=== PATIENT | male | born 1940 | race Caucasian/White ===

== ENCOUNTER 2017-01-18 09:33 | Observation (INO) | payer MEDICARE, OTHER ==
[~2017-01-18] VITALS: Ht 180.3 cm; Wt 80.0 kg
[~2017-01-18 09:33] MED LIST: ASPI81TA82 PO; B-COCAP9 PO; BYST10TA2 PO; DIOV320T PO; PLAV75TA PO; PREG100 PO; TEST200I13 IM; VYTO10TA32 PO
[2017-01-18 09:35] VITALS: BP 190/91; PULSE 61; RESP 13; TEMP 98.1; O2SAT 95
[2017-01-18] MEDS ORDERED: ASPI-110 PO (09:57)
[2017-01-18] MEDS ORDERED: VALS1TAB65 PO (09:57)
[2017-01-18] MEDS ORDERED: LYRI100C PO (09:57)
[2017-01-18] MEDS ORDERED: VYTO10TA8 PO (09:57)
[2017-01-18] MEDS ORDERED: SODIUM CHLOR 0.9% 1000 ML INJ 1,000 ML IV SCH (10:03)
--- NOTE | 2017-01-18 10:11 | PD ---
HPI Chief Complaint: GI Complaint Time Seen by Provider: 10:03 Travel History International Travel<30 days: No Contact w/Intl Traveler<30days: No Traveled to known affect area: No History of Present Illness HPI PT HAD A COLONOSCOPY ON THURSDAY, FOR 2 LARGE POLYP REMOVAL, NOW TODAY 6 DAYS LATER, HE HAD 3 LARGE BLOODY STOOLS, NO APPARENT TIMING RELATIONSHIP, NO ABD PAIN, NO RECTAL PAIN. NO ALLEVIATING OR AGGRAVATING FACTORS. GI DR PAYNE PCP DR BETO LORENZO PMHX: hypertension, diverticulosis, neuropathy, hyperlipidemia and TIA PFSH Past Medical History Cardiovascular Problems: Yes Cerebrovascular Accident: Yes (TIA 2014) Hypertension: Yes Neurologic: Yes (NEUROPATHY) Past Surgical History Abdominal Surgery: Yes (AAA REPAIR, DIVERTICULITIS ) Cardiac Surgery: Yes (CAROTID ENDARTERECTOMY) Social History Alcohol Use: Yes (SOCIALLY) Tobacco Use: No Substance Use: No Allergies-Medications (Allergen,Severity, Reaction): Coded Allergies: amlodipine (Unverified Allergy, Severe, Swelling, 01/18/17) Reported Meds & Prescriptions Reported Meds & Active Scripts Active Reported Vytorin (Ezetimibe-Simvastatin) 10-20 Mg Tab 1 Tab PO HS Valsartan 160 Mg Tab 160 Mg PO BID Lyrica (Pregabalin) 100 Mg Cap 100 Mg PO BID Review of Systems Except as stated in HPI: all other systems reviewed are Neg Gastrointestinal: Positive: Hematochezia Physical Exam Narrative GENERAL: SKIN: Warm and dry. HEAD: Atraumatic. Normocephalic. EYES: Pupils equal and round. No scleral icterus. No injection or drainage. ENT: No nasal bleeding or discharge. Mucous membranes pink and moist. NECK: Trachea midline. No JVD. CARDIOVASCULAR: Regular rate and rhythm. RESPIRATORY: No accessory muscle use. Clear to auscultation. Breath sounds equal bilaterally. GASTROINTESTINAL: Abdomen soft, non-tender, nondistended. GROSS BLOOD PER RECTUM MUSCULOSKELETAL: Extremities without clubbing, cyanosis, or edema. No obvious deformities. NEUROLOGICAL: Awake and alert. No obvious cranial nerve deficits. Motor grossly within normal limits. Five out of 5 muscle strength in the arms and legs. Normal speech. PSYCHIATRIC: Appropriate mood and affect; insight and judgment normal. Data Data Last Documented VS Orders Orders Complete Blood Count With Diff (01/18/17 10:03) Comprehensive Metabolic Panel (01/18/17 10:03) Lipase (01/18/17 10:03) Prothrombin Time / Inr (Pt) (01/18/17 10:03) Act Partial Throm Time (Ptt) (01/18/17 10:03) Type And Screen (01/18/17 10:03) Ecg Monitoring (01/18/17 10:03) Iv Access Insert/Monitor (01/18/17 10:03) Oximetry (01/18/17 10:03) Pantoprazole Inj (Protonix Inj) (01/18/17 10:15) Sodium Chlor 0.9% 1000 Ml Inj (Ns 1000 M (01/18/17 10:03) Sodium Chloride 0.9% Flush (Ns Flush) (01/18/17 10:15) Admit Order (Ed Use Only) (01/18/17 11:30) Labs Laboratory Tests Test 01/18/17 10:00 White Blood Count 5.9 TH/MM3 Red Blood Count 5.31 MIL/MM3 Hemoglobin 15.8 GM/DL Hematocrit 47.4 % Mean Corpuscular Volume 89.3 FL Mean Corpuscular Hemoglobin 29.8 PG Mean Corpuscular Hemoglobin Concent 33.3 % Red Cell Distribution Width 13.9 % Platelet Count 190 TH/MM3 Mean Platelet Volume 7.9 FL Neutrophils (%) (Auto) 70.6 % Lymphocytes (%) (Auto) 20.4 % Monocytes (%) (Auto) 7.2 % Eosinophils (%) (Auto) 1.2 % Basophils (%) (Auto) 0.6 % Neutrophils # (Auto) 4.1 TH/MM3 Lymphocytes # (Auto) 1.2 TH/MM3 Monocytes # (Auto) 0.4 TH/MM3 Eosinophils # (Auto) 0.1 TH/MM3 Basophils # (Auto) 0.0 TH/MM3 CBC Comment DIFF FINAL Differential Comment Prothrombin Time 11.0 SEC Prothromb Time International Ratio 1.0 RATIO Activated Partial Thromboplast Time 30.3 SEC Blood Urea Nitrogen 34 MG/DL Creatinine 1.48 MG/DL Random Glucose 90 MG/DL Total Protein 7.1 GM/DL Albumin 3.5 GM/DL Calcium Level 9.2 MG/DL Alkaline Phosphatase 108 U/L Aspartate Amino Transf (AST/SGOT) 21 U/L Alanine Aminotransferase (ALT/SGPT) 23 U/L Total Bilirubin 0.6 MG/DL Sodium Level 139 MEQ/L Potassium Level 4.3 MEQ/L Chloride Level 106 MEQ/L Carbon Dioxide Level 27.0 MEQ/L Anion Gap 6 MEQ/L Estimat Glomerular Filtration Rate 46 ML/MIN Lipase 121 U/L MDM Medical Decision Making Medical Screen Exam Complete: Yes Emergency Medical Condition: Yes Medical Record Reviewed: Yes Differential Diagnosis GI BLEED V ANEMIA V DEHYDRATION V INFECTIOUS DIARRHEA Narrative Course ON EVALUATION CBC DID NOT REVEAL ANY LEUKOCYTOSIS NOR ANY ANEMIA. ELECTROLYTES WERE WNL WITH THE EXCEPTION OF CREATININE AND GFR. PATIENT WAS ADMITTED FOR FURTHER EVALUATION. Diagnosis Primary Impression: GI bleed Qualified Codes: K92.2 - Gastrointestinal hemorrhage, unspecified Giovani Soria MD Jan 18, 2017 10:11
[2017-01-18] MEDS ORDERED: SODIUM CHLORIDE 0.9% FLUSH 10 ML FLUSH IVF PRN (10:15)
[2017-01-18] MEDS ORDERED: PANTOPRAZOLE SODIUM 40 MG VIAL IVP ONE (10:15)
[2017-01-18 10:26] LABS: AUTOMATED NEUTROPHIL # 4.1 TH/MM3 (1.8-7.7); BASOPHIL % 0.6 % (0.0-2.0); EOSINOPHIL # 0.1 TH/MM3 (0-0.4); EOSINOPHIL % 1.2 % (0.0-4.0); HEMATOCRIT 47.4 % (39.0-51.0); HEMO FLAGS DIFF FINAL; LYMPH % 20.4 % (9.0-44.0); LYMPHOCYTE # 1.2 TH/MM3 (1.0-4.8); MEAN CELL VOLUME 89.3 FL (80.0-100.0); MEAN CORPUSCULAR HEMOGLOBIN 29.8 PG (27.0-34.0); MEAN CORPUSCULAR HGB CONC 33.3 % (32.0-36.0); MONO % 7.2 % (0.0-8.0); NEUT % 70.6 % (16.0-70.0); PLATELET COUNT 190 TH/MM3 (150-450); RED BLOOD COUNT 5.31 MIL/MM3 (4.50-5.90); RED CELL DISTRIBUTION WIDTH 13.9 % (11.6-17.2); WHITE BLOOD COUNT 5.9 TH/MM3 (4.0-11.0)
[2017-01-18 10:29] LABS: APTT (PATIENT) 30.3 SEC (24.3-30.1)
[2017-01-18 10:33] VITALS: O2SAT 97
[2017-01-18 11:01] LABS: ALT (GPT) 23 U/L (12-78); ANION GAP 6 MEQ/L (5-15); AST (GOT) 21 U/L (15-37); BLOOD UREA NITROGEN 34 MG/DL (7-18); CHLORIDE 106 MEQ/L (98-107); GLOMERULAR FILTRATION RATE 46 ML/MIN (>89); POTASSIUM 4.3 MEQ/L (3.5-5.1); SODIUM (NA) 139 MEQ/L (136-145)
[2017-01-18 11:03] LABS: ALKALINE PHOSPHATASE 108 U/L (45-117); TOTAL BILIRUBIN ADULT 0.6 MG/DL (0.2-1.0)
[2017-01-18] MEDS ORDERED: oxyCODONE/ACETAMINOPHEN 10 MG/325 MG TAB PO PRN (11:45)
[2017-01-18] MEDS ORDERED: ONDANSETRON HCL 4 MG/2 ML VIAL IVP PRN (11:45)
[2017-01-18] MEDS ORDERED: oxyCODONE/ACETAMINOPHEN 5 MG/325 MG TAB PO PRN (11:45)
[2017-01-18] MEDS ORDERED: SODIUM CHLORIDE 0.9% FLUSH 10 ML FLUSH IV FLUSH PRN (11:45)
[2017-01-18] MEDS ORDERED: MORPHINE SULFATE 4 MG/ML INJ IV PUSH PRN ×2 (11:45)
[2017-01-18] MEDS ORDERED: BISACODYL 10 MG SUPP RECTAL PRN (11:45)
[2017-01-18] MEDS ORDERED: PROCHLORPERAZINE 25 MG SUPP RECTAL PRN (11:45)
[2017-01-18] MEDS ORDERED: NALOXONE HCL 0.4 MG/ML AMP IV PUSH PRN (11:45)
[2017-01-18] MEDS ORDERED: SENNOSIDES 8.6 MG TAB PO PRN (11:45)
[2017-01-18] MEDS ORDERED: MAGNESIUM HYDROXIDE SUSP 30 ML CUP PO PRN (11:45)
[2017-01-18] MEDS ORDERED: LACTULOSE SYRUP 20 GM/30 ML CUP PO PRN (11:45)
[2017-01-18] MEDS ORDERED: ACETAMINOPHEN 325 MG TAB PO PRN ×2 (11:45)
[2017-01-18] MEDS ORDERED: LACTATED RINGER'S 1000 ML INJ 1,000 ML IV ONE (12:00)
[2017-01-18] MEDS ORDERED: PROPOFOL 200 MG/20 ML AMP IV ONE (12:00)
[2017-01-18] MEDS ORDERED: PHENYLEPH/NS 1000 MCG/10 ML SYR IV ONE (12:00)
[2017-01-18] MEDS ORDERED: LIDOCAINE HCL 1% PF 5 ML AMPULE OTHER ONE (12:00)
--- NOTE | 2017-01-18 12:38 | MB ---
cc: MICHAEL LONG MD, STEVEN DATE OF CONSULTATION: 01/18/2017. REASON FOR CONSULTATION: Lower GI bleed. REFERRING PHYSICIAN: Dr. Toney Rubalcava. HISTORY OF PRESENT ILLNESS: This is a very pleasant 76-year-old male known to the undersigned who underwent routine colonoscopy six days ago for a personal history of colon polyps along with constipation and bloating. The patient was found to have two polyps in the ascending colon, at least one of which was a little over a centimeter and removed by snare cautery polypectomy. The patient is on baby aspirin daily but no other blood thinners. He states he was doing well all week until this morning when he woke up and he had three bowel movements in succession with a fair amount of bright red blood. He had no abdominal pain, no nausea and no lightheadedness or dizziness. He called the undersigned. I directed him and his to come to the emergency room. He has had two more bloody bowel movement since then. I did see the blood in the toilet and there is a fair amount of fresh red blood. The patient's hemoglobin; however, is good at 15.8. He has no pain or other symptoms. No chest pain or shortness of breath. PAST MEDICAL HISTORY: His medical history is remarkable for hypertension. PAST SURGICAL HISTORY: 1. He has had artificial joint surgery. 2. Vascular surgery. MEDICATIONS: His medications include: 1. Aspirin 81 milligrams daily. 2. Lyrica 100 milligrams daily. 3. B-complex one tablet daily. 4. Valsartan 320 milligrams daily. ALLERGIES: HE HAS NO KNOWN DRUG ALLERGIES. FAMILY HISTORY: His family history is remarkable for heart disease. SOCIAL HISTORY: The patient is . He has three children. He is a former smoker. No significant alcohol history. REVIEW OF SYSTEMS: His review of systems is essentially negative at the present time except for the bleeding. He does state that he tends to bleed easily. He does have a history of joint pain. PHYSICAL EXAMINATION: GENERAL: The physical exam reveals a well-developed male in no acute distress. VITAL SIGNS: His blood pressure is 190/91, pulse 61 and regular, respirations are 13 and unlabored. Temperature is 98.1 orally. HEAD, EYES, EARS, NOSE, THROAT: The sclerae are anicteric. LUNGS: Clear to auscultation. HEART: Heart sounds are regular without murmurs, rubs or gallops. ABDOMEN: Abdomen is soft and nontender, nondistended. No organomegaly. Bowel sounds are normal. RECTAL: Rectal was deferred. EXTREMITIES: No cyanosis, clubbing or edema. NEUROLOGIC: He is alert and oriented with pleasant affect and no gross motor deficits. LABORATORY FINDINGS: Electrolytes unremarkable. BUN 34, creatinine 1.48. Liver function tests are unremarkable. His INR is 1.0, APTT is 30.3. His hemoglobin is 15.8, white count 5.9, platelet count 190,000. IMAGING STUDIES: No current imaging available. IMPRESSION: Lower GI bleed with hematochezia. The patient is most likely having a post-polypectomy bleed. He is hemodynamically stable. PLAN: I discussed with Zackary and his that he may stop bleeding on his own, but because he has continued to pass a fair amount of blood here in the emergency department, I have suggested that we go ahead and start prepping him with GoLYTELY, and if the bleeding continues, will go ahead with colonoscopy later today for hemostasis. I discussed hemostatic mechanisms such as cautery, injection and hemoclips. He understands the risks of colonoscopy. Informed consent was obtained. He has been started on IV fluids. Also, serial hemoglobin and hematocrit have been ordered. Will follow closely with you. Thank you for this consultation. MD EDDY Geller/JACKELIN /12:05 PM /12:24 PM NYASIA
[2017-01-18 12:54] VITALS: BP 154/80; PULSE 71; RESP 12; TEMP 98.7; O2SAT 96
[2017-01-18] MEDS ORDERED: PEG (High)/E-LYTE SOLN 4000 ML BTL PO ONE (13:00)
--- NOTE | 2017-01-18 13:21 | HHI.HP ---
[facility] Service [facility] Primary Care Physician Elise Gaspar M.D. Admission Diagnosis GI BLEED (HD STABLE) Diagnoses: Chief Complaint: rectal bleeding Travel History International Travel<30 Days: No Contact w/Intl Traveler <30 Da: No Traveled to Known Affected Are: No History of Present Illness 76-year-old male with a history of hypertension, diverticulosis, neuropathy, hyperlipidemia and the TIA presented to the ED with rectal bleeding that started this morning. Patient states he underwent a colonoscopy on Thursday and had 2 large polyps removed. Today he developed rectal bleeding with bright red blood with each bowel movement. He states his bowel movements are liquid, and he has had about 6 since admission. He denies any associated chest pain, shortness of breath, abdominal pain, dizziness, headaches, nausea or vomiting. PCP Dr. ELISE GASPAR GI Dr. Jaquez Review of Systems Constitutional: DENIES: Diaphoretic episodes, Fatigue, Fever, Weight gain, Weight loss, Chills, Dizziness, Change in appetite Endocrine: DENIES: Heat/cold intolerance, Polydipsia, Polyphagia Eyes: DENIES: Blurred vision, Diplopia, Eye inflammation, Eye pain, Vision loss Ears, nose, mouth, throat: DENIES: Tinnitus, Hearing loss, Vertigo, Nasal discharge, Oral lesions, Odynophagia Respiratory: DENIES: Apneas, Cough, Snoring, Wheezing, Hemoptysis, Sputum production Cardiovascular: DENIES: Chest pain, Palpitations, Syncope, Dyspnea on Exertion , PND, Lower Extremity Edema Gastrointestinal: COMPLAINS OF: Bloody stools, DENIES: Abdominal pain, Black stools, Constipation, Diarrhea, Nausea, Vomiting, Difficulty Swallowing Genitourinary: DENIES: Sexual dysfunction, Urinary frequency Musculoskeletal: DENIES: Joint pain, Muscle aches, Stiffness Integumentary: DENIES: Abnormal pigmentation, Nail changes Hematologic/lymphatic: DENIES: Bruising, Lymphadenopathy Immunologic/allergic: DENIES: Eczema, Urticaria Neurologic: DENIES: Abnormal gait, Headache, Localized weakness, Paresthesias Psychiatric: DENIES: Anxiety, Confusion, Mood changes, Depression, Hallucinations Except as stated in HPI: all other systems reviewed are Neg Past Family Social History Past Medical History hypertension diverticulosis neuropathy hyperlipidemia TIA Past Surgical History Endarterectomy AAA repair Colon resection s/o Diverticulitis Left knee replacement Reported Medications Reported Meds & Active Scripts Active Reported Vytorin (Ezetimibe-Simvastatin) 10-20 Mg Tab 1 Tab PO HS Valsartan 160 Mg Tab 160 Mg PO BID Aspirin 81 (Aspirin) 81 Mg Tabdr 81 Mg PO DAILY Lyrica (Pregabalin) 100 Mg Cap 100 Mg PO BID Allergies: Coded Allergies: amlodipine (Unverified Allergy, Severe, Swelling, 01/18/17) Active Ordered Medications Current Medications Pantoprazole Sodium (Protonix Inj) 40 mg ONCE ONCE IVP Last administered on 10:33; Start 01/18/17 at 10:15; Stop 01/18/17 at 10:16; Status DC Sodium Chloride 1,000 ml @ 125 mls/hr Q8H IV Last administered on 01/18/17 10 :33; Start 01/18/17 at 10:03; Stop 01/18/17 at 12:07; Status DC Sodium Chloride (NS Flush) 2 ml UNSCH PRN IVF FLUSH AFTER USING IV ACCESS Last administered on 01/18/17 10:33; Start 01/18/17 at 10:15 Sodium Chloride 1,000 ml @ 100 mls/hr Q10H IV ; Start 01/18/17 at 12:30 Sodium Chloride (NS Flush) 2 ml UNSCH PRN IV FLUSH FLUSH AFTER USING IV ACCESS ; Start 01/18/17 at 11:45; Status UNV Sodium Chloride (NS Flush) 2 ml BID IV FLUSH ; Start 01/18/17 at 21:00 Acetaminophen (Tylenol) 650 mg Q4H PRN PO TEMP > 100.4; Start 01/18/17 at 11:45 Ondansetron HCl (Zofran Inj) 4 mg Q6H PRN IVP NAUSEA OR VOMITING; Start at 11:45 Prochlorperazine (Compazine Supp) 25 mg Q12H PRN RECTAL NAUSEA OR VOMITING; Start 01/18/17 at 11:45 Acetaminophen (Tylenol) 650 mg Q6H PRN PO PAIN SCALE 1 TO 2; Start 01/18/17 at 11:45 Oxycodone/ Acetaminophen (Percocet 5-325 Mg) 1 tab Q6H PRN PO PAIN SCALE 3 TO 5; Start 01/18/17 at 11:45 Oxycodone/ Acetaminophen (Percocet 10-325 Mg) 1 tab Q6H PRN PO PAIN SCALE 6 TO 10; Start 01/18/17 at 11:45 Morphine Sulfate (Morphine Inj) 2 mg Q3H PRN IV PUSH Pain 3-5; if unable to take PO; Start 01/18/17 at 11:45 Morphine Sulfate (Morphine Inj) 4 mg Q3H PRN IV PUSH Pain 6-10;if unable to take PO; Start 01/18/17 at 11:45 Naloxone HCl (Narcan Inj) 0.4 mg UNSCH PRN IV PUSH SEE LABEL COMMENTS; Start 01/18/17 at 11:45 Senna/Docusate Sodium (Julia-Colace) 1 tab BID PO ; Start 01/18/17 at 21:00 Magnesium Hydroxide (Milk Of Magnesia Liq) 30 ml Q12H PRN PO MILD - MODERATE CONSTIPATION; Start 01/18/17 at 11:45 Sennosides (Senokot) 17.2 mg Q12H PRN PO MODERATE - SEVERE CONSTIPATION; Start 01/18/17 at 11:45 Bisacodyl (Dulcolax Supp) 10 mg DAILY PRN RECTAL SEVERE CONSITIPATION; Start 01/18/17 at 11:45 Lactulose (Lactulose Liq) 30 ml DAILY PRN PO SEVERE CONSITIPATION; Start at 11:45 Pantoprazole Sodium (Protonix Inj) 40 mg Q12H IV PUSH ; Start 01/18/17 at 23:00 Pregabalin (Lyrica) 100 mg BID PO ; Start 01/18/17 at 21:00 Valsartan (Diovan) 160 mg BID PO ; Start 01/18/17 at 21:00 Non-Formulary Medication 1 tab HS PO ; Start 01/18/17 at 21:00; Status UNV Polyethylene Glycol/ Electrolytes (Colyte Liq) 4,000 ml ONCE ONCE PO ; Start 01/18/17 at 13:00; Stop 01/18/17 at 13:01; Status DC EZETIMIBE (Zetia) 10 mg HS PO ; Start 01/19/17 at 21:00 Pravastatin Sodium (Pravachol) 40 mg HS PO ; Start 01/19/17 at 21:00 Current Medications Medications (Trade) Dose Ordered Sig/Lupe Route Start Time Stop Time Status Last Admin (NS Flush) 2 ml UNSCH PRN IVF 01/18/17 10:15 01/18/17 10:33 Sodium Chloride 1,000 ml @ 100 mls/hr Q10H IV 01/18/17 12:30 (NS Flush) 2 ml BID IV FLUSH 01/18/17 21:00 (Tylenol) 650 mg Q4H PRN PO 01/18/17 11:45 (Zofran Inj) 4 mg Q6H PRN IVP 01/18/17 11:45 (Compazine Supp) 25 mg Q12H PRN RECTAL 01/18/17 11:45 (Tylenol) 650 mg Q6H PRN PO 01/18/17 11:45 (Percocet 5-325 Mg) 1 tab Q6H PRN PO 01/18/17 11:45 (Percocet 10-325 Mg) 1 tab Q6H PRN PO 01/18/17 11:45 (Morphine Inj) 2 mg Q3H PRN IV PUSH 01/18/17 11:45 (Morphine Inj) 4 mg Q3H PRN IV PUSH 01/18/17 11:45 (Narcan Inj) 0.4 mg UNSCH PRN IV PUSH 01/18/17 11:45 (Julia-Colace) 1 tab BID PO 01/18/17 21:00 (Milk Of Magnesia Liq) 30 ml Q12H PRN PO 01/18/17 11:45 (Senokot) 17.2 mg Q12H PRN PO 01/18/17 11:45 (Dulcolax Supp) 10 mg DAILY PRN RECTAL 01/18/17 11:45 (Lactulose Liq) 30 ml DAILY PRN PO 01/18/17 11:45 (Protonix Inj) 40 mg Q12H IV PUSH 01/18/17 23:00 (Lyrica) 100 mg BID PO 01/18/17 21:00 (Diovan) 160 mg BID PO 01/18/17 21:00 (Zetia) 10 mg HS PO 01/19/17 21:00 (Pravachol) 40 mg HS PO 01/19/17 21:00 Family History Dad: Heart disease, [place] Social History Tobacco use: Quit 15 years ago Alcohol use: One beer daily Illicit drug use: Denies Physical Exam Vital Signs Vital Signs Date Time Temp Pulse Resp B/P (MAP) Pulse Ox O2 Delivery O2 Flow Rate FiO2 01/18/17 12:54 98.7 71 12 154/80 (104) 96 01/18/17 10:33 97 Room Air 01/18/17 09:35 98.1 61 13 190/91 (124) 95 Physical Exam GENERAL: This is a well-nourished, well-developed patient, in no apparent distress. SKIN: No rashes, ecchymoses or lesions. Cool and dry. HEAD: Atraumatic. Normocephalic. EYES: Pupils equal round and reactive. Extraocular motions intact. tongue is midline, mucous membrane is moist ENT: Nose without bleeding, purulent drainage or septal hematoma. Airway patent. NECK: Trachea midline. No JVD neck supple CARDIOVASCULAR: Regular rate and rhythm without murmurs, gallops, or rubs. S1, S2 NO S3 OR S4 RESPIRATORY: Clear to auscultation. Breath sounds equal bilaterally. No wheezes , rales, or rhonchi. GASTROINTESTINAL: Abdomen soft, non-tender, nondistended. MUSCULOSKELETAL: Extremities without clubbing, cyanosis, or edema. No calf tenderness. NEUROLOGICAL: Awake and alert. Motor and sensory grossly within normal limits. Normal speech. INSIGHT AND JUDGEMENT ARE GOOD MOOD AND BEHAVIOR ARE APPROPRIATE HEME POSITIVE STOOLS Laboratory Laboratory Tests Test 01/18/17 10:00 White Blood Count 5.9 Red Blood Count 5.31 Hemoglobin 15.8 Hematocrit 47.4 Mean Corpuscular Volume 89.3 Mean Corpuscular Hemoglobin 29.8 Mean Corpuscular Hemoglobin Concent 33.3 Red Cell Distribution Width 13.9 Platelet Count 190 Mean Platelet Volume 7.9 Neutrophils (%) (Auto) 70.6 Lymphocytes (%) (Auto) 20.4 Monocytes (%) (Auto) 7.2 Eosinophils (%) (Auto) 1.2 Basophils (%) (Auto) 0.6 Neutrophils # (Auto) 4.1 Lymphocytes # (Auto) 1.2 Monocytes # (Auto) 0.4 Eosinophils # (Auto) 0.1 Basophils # (Auto) 0.0 CBC Comment DIFF FINAL Differential Comment Prothrombin Time 11.0 Prothromb Time International Ratio 1.0 Activated Partial Thromboplast Time 30.3 Blood Urea Nitrogen 34 Creatinine 1.48 Random Glucose 90 Total Protein 7.1 Albumin 3.5 Calcium Level 9.2 Alkaline Phosphatase 108 Aspartate Amino Transf (AST/SGOT) 21 Alanine Aminotransferase (ALT/SGPT) 23 Total Bilirubin 0.6 Sodium Level 139 Potassium Level 4.3 Chloride Level 106 Carbon Dioxide Level 27.0 Anion Gap 6 Estimat Glomerular Filtration Rate 46 Lipase 121 Result Diagram: 01/18/17 1000 01/18/17 1000 Caprini VTE Risk Assessment Caprini VTE Risk Assessment: Mod/High Risk (score >= 2) VTE Pharm Contraindication: Active bleeding Caprini Risk Assessment Model Point Value = 1 Point Value = 2 Point Value = 3 Point Value = 5 Age 41-60 Minor surgery BMI > 25 kg/m2 Swollen legs Varicose veins or History of unexplained or recurrent spontaneous Oral contraceptives or hormone replacement Sepsis (< 1 month) Serious lung disease, including pneumonia (< 1 month) Abnormal pulmonary function Acute myocardial infarction Congestive heart failure (< 1 month) History of inflammatory bowel disease Medical patient at bed rest Age 61-74 Arthroscopic surgery Major open surgery (> 45 min) Laparoscopic surgery (> 45 min) Malignancy Confined to bed (> 72 hours) Immobilizing plaster cast Central venous access Age >= 75 History of VTE Family history of VTE Factor V Leiden Prothrombin [id number] Lupus anticoagulant Anticardiolipin antibodies Elevated serum homocysteine Heparin-induced thrombocytopenia Other congenital or acquired thrombophilia Stroke (< 1 month) Elective arthroplasty Hip, pelvis, or leg fracture Acute spinal cord injury (< 1 month) Prophylaxis Regimen Total Risk Factor Score Risk Level Prophylaxis Regimen 0-1 Low Early ambulation 2 Moderate Order ONE of the following: *Sequential Compression Device (SCD) *Heparin 5000 units SQ BID 3-4 Higher Order ONE of the following medications: *Heparin 5000 units SQ TID *Enoxaparin/Lovenox 40 mg SQ daily (WT < 150 kg, CrCl > 30 mL/min) *Enoxaparin/Lovenox 30 mg SQ daily (WT < 150 kg, CrCl > 10-29 mL/min) *Enoxaparin/Lovenox 30 mg SQ BID (WT < 150 kg, CrCl > 30 mL/min) AND/OR *Sequential Compression Device (SCD) 5 or more Highest Order ONE of the following medications: *Heparin 5000 units SQ TID (Preferred with Epidurals) *Enoxaparin/Lovenox 40 mg SQ daily (WT < 150 kg, CrCl > 30 mL/min) *Enoxaparin/Lovenox 30 mg SQ daily (WT < 150 kg, CrCl > 10-29 mL/min) *Enoxaparin/Lovenox 30 mg SQ BID (WT < 150 kg, CrCl > 30 mL/min) AND *Sequential Compression Device (SCD) Assessment and Plan Problem List: (1) GI bleed ICD Code: K92.2 - Gastrointestinal hemorrhage, unspecified (2) HTN (hypertension) ICD Code: I10 - Essential (primary) hypertension Status: Acute Assessment and Plan 76-year-old male with a history of hypertension, diverticulosis, neuropathy, hyperlipidemia and the TIA presented to the ED with rectal bleeding that started this morning. Patient states he underwent a colonoscopy on Thursday and when she had 2 large polyps removed. GI bleed, with hematochezia, s /p colonoscopy with polyp removal 6 days ago, occult positive in ED Hemoglobin stable at 15.8 -Consult GI for possible colonoscopy and cauterization TOMORROW -GI prophylaxis with Protonix IV BID -Serial CBC every 6H -Pain management with IV morphine and PO Percocet -Nothing by mouth Acute kidney injury, creatinine 1.48, baseline around 1.2, suspect due to dehydration -IVF for hydration -Trend BMP Hypertension, chronic, currently uncontrolled -Resume home medications valsartan -Monitor vitals Hyperlipidemia, chronic, stable: Resume Home medications, hold ASA or now due to bleeding DVT prophylaxis: SCDs GI prophylaxis: Protonix The exam, history, and the medical decision-making described in the above note were completed with the assistance of the mid-level provider. I reviewed and agree with the findings presented. I attest that I had a [id number] encounter with the patient on the same day, and personally performed and documented my assessment and findings in the medical record. Code Status FULL CODE Discussed Condition With Patient, patient's , and Dr. Rubalcava The exam, history, and the medical decision-making described in the above note were completed with the assistance of the mid-level provider. I reviewed and agree with the findings presented. I attest that I had a [id number] encounter with the patient on the same day, and personally performed and documented my assessment and findings in the medical record. Dafne Shanks Jan 18, 2017 13:21 Toney Rubalcava DO Jan 18, 2017 13:39
[2017-01-18] MEDS: SODIUM CHLOR 0.9% 1000 ML INJ 1,000 ML IV SCH ×2 (13:41→22:08)
[2017-01-18 15:21] LABS: HEMATOCRIT 42.1 % (39.0-51.0); MEAN CELL VOLUME 90.4 FL (80.0-100.0); MEAN CORPUSCULAR HEMOGLOBIN 30.4 PG (27.0-34.0); MEAN CORPUSCULAR HGB CONC 33.7 % (32.0-36.0); PLATELET COUNT 195 TH/MM3 (150-450); RED BLOOD COUNT 4.66 MIL/MM3 (4.50-5.90); REVIEW FLAG FINAL; WHITE BLOOD COUNT 8.1 TH/MM3 (4.0-11.0)
[2017-01-18 15:56] VITALS: BP 142/68; PULSE 72; RESP 16; TEMP 98.6; O2SAT 98
--- NOTE | 2017-01-18 18:54 | GIPROC ---
[facility] [address] [facility]. 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 PREP QUALITY: excellent PREP TYPE:GoLytely ESTIMATED BLOOD LOSS: None CONSENT: The patient understands the risks and benefits of the procedure and understands that these risks include, but are not limited to: sedation, allergic reaction, infection, perforation and/or bleeding. Alternative means of evaluation and treatment include, among others: physical exam, x-rays, and/or surgical intervention. The patient elects to proceed with this endoscopic procedure. medical equipment was checked for proper function. Hand hygiene and appropriate measures for infection prevention was taken. After the risks, benefits and alternatives of the procedure were thoroughly explained, Informed consent was verified, confirmed and timeout was successfully executed by the treatment team. A digital exam revealed no abnormalities of the rectum The Pentax [id number] endoscope was introduced through the anus and advanced to the cecum, which was identified by both the appendix and ileocecal valve. The instrument was then slowly withdrawn as the colon was fully examined. COLON FINDINGS: Adherent clot over recent polypectomy site. Clot suctioned off easily and one ([employer] Quick Clip Pro)applied. First clip came off. Moderate diverticulosis was noted in the sigmoid colon. Retroflexion was not performed The scope was then completely withdrawn from the patient and the procedure terminated. ADVERSE EVENTS: There were no complications. IMPRESSIONS: 1. Adherent clot over recent polypectomy site. Clot suctioned off easily and one ([employer] Quick Clip Pro)applied. First clip came off 2. Moderate diverticulosis was noted in the sigmoid colon 3. Retroflexion was not performed 4. Revealed no abnormalities of the rectum RECOMMENDATIONS: 1. Continue surveillance 2. Continue clear liquids. Hold ASA a few days. RECALL: Return 3 years Colonoscopy Brent Jaquez MD eSigned: Brent Jaquez MD 01/18/2017 6:54 PM cc:
--- NOTE | 2017-01-18 19:05 | HHI.GIFU ---
GI Follow-up Note Consult Follow-up Patient just underwent colonoscopy to cecum. Prep was very good and the bleeding had stopped. Both recent polypectomy sites identified easily proximal ascending colon. The more proximal polypectomy site had an overlying clot that suctioned off easily revealing an underlying visible vessel which oozed slightly but no significant bleeding. A clip was applied. ASSESSMENT/PLAN: 1. Post-polypectomy bleed-recommend keep pt overnight on clear liquids. If no sign of bleeding tomorrow am can d/c home. Rec he not resume ASA for a few days. It was a pleasure seeing Abhijit Vargas. Thank you for this consult. Entered by: Brent Stark MD Jan 18, 2017 19:04
[2017-01-18 19:41] VITALS: BP 167/94; PULSE 74; RESP 19; TEMP 98.4; O2SAT 98
[2017-01-18] MEDS ORDERED: DO NOT ADM ANY ANTICOAGULANT DRUGS PRN (19:45)
[2017-01-18] MEDS ORDERED: SODIUM CHLORIDE 0.9% FLUSH 10 ML FLUSH IV FLUSH SCH (21:00)
[2017-01-18] MEDS ORDERED: NON-FORMULARY DRUG (Ezetimibe-Simvastatin (Vytorin) 1 TAB) PO SCH (21:00)
[2017-01-18] MEDS: DOCUSATE SODIUM 50 MG/SENNA 8.6 MG TAB PO SCH (21:00)
[2017-01-18] MEDS: PREGABALIN 100 MG CAP PO SCH (21:25)
[2017-01-18] MEDS: VALSARTAN 160 MG TAB PO SCH (21:25)
[2017-01-18] MEDS: PANTOPRAZOLE SODIUM 40 MG VIAL IV PUSH SCH (23:14)
[2017-01-18 23:25] VITALS: BP 158/74; PULSE 64; RESP 18; TEMP 97.6; O2SAT 98
[2017-01-18 23:46] LABS: HEMATOCRIT 33.1 % (39.0-51.0); MEAN CELL VOLUME 90.1 FL (80.0-100.0); MEAN CORPUSCULAR HGB CONC 33.3 % (32.0-36.0); PLATELET COUNT 158 TH/MM3 (150-450); RED BLOOD COUNT 3.67 MIL/MM3 (4.50-5.90); RED CELL DISTRIBUTION WIDTH 13.9 % (11.6-17.2); REVIEW FLAG FINAL; WHITE BLOOD COUNT 6.2 TH/MM3 (4.0-11.0)
[2017-01-19 03:29] VITALS: BP 152/71; PULSE 74; RESP 18; TEMP 98.4; O2SAT 97
[2017-01-19 06:24] LABS: AUTOMATED NEUTROPHIL # 4.6 TH/MM3 (1.8-7.7); BASOPHIL % 0.5 % (0.0-2.0); EOSINOPHIL # 0.1 TH/MM3 (0-0.4); EOSINOPHIL % 1.1 % (0.0-4.0); HEMATOCRIT 34.2 % (39.0-51.0); HEMO FLAGS DIFF FINAL; LYMPH % 19.4 % (9.0-44.0); LYMPHOCYTE # 1.2 TH/MM3 (1.0-4.8); MEAN CELL VOLUME 90.6 FL (80.0-100.0); MEAN CORPUSCULAR HGB CONC 33.1 % (32.0-36.0); PLATELET COUNT 158 TH/MM3 (150-450); RED BLOOD COUNT 3.77 MIL/MM3 (4.50-5.90); RED CELL DISTRIBUTION WIDTH 13.8 % (11.6-17.2); WHITE BLOOD COUNT 6.4 TH/MM3 (4.0-11.0)
[2017-01-19 07:12] LABS: ALKALINE PHOSPHATASE 80 U/L (45-117); ALT (GPT) 18 U/L (12-78); ANION GAP 6 MEQ/L (5-15); AST (GOT) 17 U/L (15-37); BICARBONATE 26.4 MEQ/L (21.0-32.0); BLOOD UREA NITROGEN 23 MG/DL (7-18); CHLORIDE 109 MEQ/L (98-107); FREE T4 0.82 NG/DL (0.76-1.46); GLOMERULAR FILTRATION RATE 62 ML/MIN (>89); MAGNESIUM 2.1 MG/DL (1.5-2.5); POTASSIUM 3.8 MEQ/L (3.5-5.1); SODIUM (NA) 141 MEQ/L (136-145); TOTAL BILIRUBIN ADULT 0.5 MG/DL (0.2-1.0)
--- NOTE | 2017-01-19 08:15 | HHI.PR ---
Subjective Remarks Follow-up for rectal bleeding. Patient underwent colonoscopy yesterday with GI. Patient denies any acute issues overnight. He had a normal BM overnight. He denies any abdominal pain. His physician/internist told him to stop aspirin for 2 or 3 days. Objective Vitals Vital Signs Date Time Temp Pulse Resp B/P (MAP) Pulse Ox O2 Delivery O2 Flow Rate FiO2 01/19/17 07:36 21 01/19/17 03:29 98.4 74 18 152/71 (98) 97 01/18/17 23:25 97.6 64 18 158/74 (102) 98 01/18/17 19:41 98.4 74 19 167/94 (118) 98 01/18/17 19:01 89 16 131/61 (84) 98 Room Air 01/18/17 18:59 102 22 124/61 (82) 97 Room Air 01/18/17 18:53 97.8 93 16 90/58 (69) 96 Room Air 01/18/17 15:56 98.6 72 16 142/68 (92) 98 01/18/17 13:04 01/18/17 12:54 98.7 71 12 154/80 (104) 96 01/18/17 10:33 97 Room Air 01/18/17 09:35 98.1 61 13 190/91 (124) 95 I/O 01/18/17 01/18/17 01/18/17 01/19/17 01/19/17 01/19/17 07:00 15:00 23:00 07:00 15:00 23:00 Intake Total 100 ml Balance 100 ml Other 100 ml # Bowel Movements 1 Result Diagram: 01/19/17 0525 01/19/17 0525 Objective Remarks GENERAL: Well-developed well-nourished. In no acute distress. SKIN: Warm and dry. No lesions noted. HEENT: Normocephalic. Pupils equal and round. Mucous membranes pink and moist. CARDIOVASCULAR: Regular rate and rhythm. No murmur appreciated. RESPIRATORY: No accessory muscle use. Clear to auscultation. Breath sounds equal bilaterally. GASTROINTESTINAL: Abdomen soft, non-tender, nondistended. Bowel sounds x4. MUSCULOSKELETAL: No obvious deformities. No clubbing or cyanosis. No edema. NEUROLOGICAL: Awake and alert. No focal neurological deficits. Moves upper and lower extremities spontaneously. Normal speech. PSYCHIATRIC: Appropriate mood and affect; insight and judgment normal. A/P Problem List: (1) GI bleed ICD Code: K92.2 - Gastrointestinal hemorrhage, unspecified Status: Resolved (2) HTN (hypertension) ICD Code: I10 - Essential (primary) hypertension Status: Chronic Assessment and Plan 76-year-old male with a history of hypertension, diverticulosis, neuropathy, hyperlipidemia and the TIA presented to the ED with rectal bleeding that started this morning. Patient states he underwent a colonoscopy on Thursday and when she had 2 large polyps removed. GI bleed, with hematochezia, s /p colonoscopy with polyp removal 6 days ago, occult positive in ED -Consulted GI who performed colonoscopy 01/19 with removal of clot from polypectomy site and clipping underlying oozing vessel. -Hemoglobin did drop from baseline around 14 down to 11.0, but has trended up to 11.3 overnight, stable. -PPI -GI recommended against resuming aspirin for now Acute kidney injury, creatinine 1.48, previously 1.22 on 05/02/15. Suspect due to dehydration -Given IVF and creatinine improved to 1.15. -Improved Hypertension, chronic -Continue home valsartan -Monitor Hyperlipidemia, chronic, stable: Continue Home medications DVT prophylaxis: SCDs GI prophylaxis: Protonix Discharge Planning Discharge patient to home Condition on discharge: Improved Heart healthy Diet as tolerated Regular activity Follow-up with primary care physician and gastroenterology Problem Qualifiers (1) GI bleed: Qualified Codes: K92.2 - Gastrointestinal hemorrhage, unspecified (2) HTN (hypertension): Qualified Codes: I10 - Essential (primary) hypertension Vicente Frankel Jan 19, 2017 08:15
[2017-01-19 08:20] VITALS: BP 194/89; PULSE 64; RESP 24; TEMP 97.6; O2SAT 97
--- NOTE | 2017-01-19 08:58 | HHI.GIFU ---
GI Follow-up Note Consult Follow-up Subjective: Patient laying in bed comfortably, feels well and has had two BMs without blood. No abd pain. Pt has been up ambulating. Objective: PHYSICAL EXAMINATION: Vitals signs stable No fever ABDOMEN: Soft, nondistended, nontender EXTREMITIES: No clubbing, cyanosis, or edema. SKIN: Normal; no rash; no jaundice. CARD FILER: No focal deficits; alert and oriented times three. Available Data (labs, X- Rays, Procedues) : Hgb dropped to 11.0 but back up to 11.3. Some decrease BUN and creat with hydration. ASSESSMENT/PLAN: 1. Post-polypectomy bleed-stable. Discussed findings again with patient and . Bleeding could recur. He is going to hold ASA a few more days and take a stool softener. Will resume regular diet and can discharge home today. Polyps were adenomas with serrated features and I discussed these results with them as well and repeat colonoscopy in 3 years. It was a pleasure seeing Abhijit Vargas. Thank you for this consult. Entered by: Brent Stark MD Jan 19, 2017 08:58
[2017-01-19] MEDS: DOCUSATE SODIUM 50 MG/SENNA 8.6 MG TAB PO SCH (09:00)
[2017-01-19] MEDS: VALSARTAN 160 MG TAB PO SCH (09:00)
[2017-01-19] MEDS: PREGABALIN 100 MG CAP PO SCH (09:00)
[2017-01-19 10:24] LABS: HEMOGLOBIN A1a 1.2 %; HEMOGLOBIN A1b 1.6 %; HEMOGLOBIN Ao 84.9 %; HEMOGLOBIN LA1C 2.1 %
[2017-01-19] MEDS: PANTOPRAZOLE SODIUM 40 MG VIAL IV PUSH SCH (11:00)
[2017-01-19 11:15] VITALS: BP 148/72
--- NOTE | 2017-01-19 12:33 | EKG ---
Date Performed: 01/18/2017 Time Performed: 15:47:42 PTAGE: 76 years EKG: Sinus rhythm NORMAL ECG Compared to prior tracing no significant change PREVIOUS TRACING : 05/02/2015 05.48 DOCTOR: Steve Sanders Interpretating Date/Time 01/19/2017 12:28:03
[2017-01-19] MEDS ORDERED: EZETIMIBE 10 MG TAB PO SCH (21:00)
[2017-01-19] MEDS ORDERED: PRAVASTATIN SOD 40 MG TAB PO SCH (21:00)
== END 2017-01-19 12:12 | disposition home or self-care (01) ==
LOC: NEPC 09:33 → NEDA 11:38 → NEPHCDU 12:59
PROVIDERS: ADMIT Hospitalist; ATTEND Hospitalist
DX: K91.840 Postprocedural hemorrhage of a digestive system organ or structure following a digestive system procedure (principal); D12.2 Benign neoplasm of ascending colon; K57.92 Diverticulitis of intestine, part unspecified, without perforation or abscess without bleeding; I10 Essential (primary) hypertension; N17.9 Acute kidney failure, unspecified; E78.5 Hyperlipidemia, unspecified; G62.9 Polyneuropathy, unspecified; Y83.8 Other surgical procedures as the cause of abnormal reaction of the patient, or of later complication, without mention of misadventure at the time of the procedure; Z79.82 Long term (current) use of aspirin; Z86.73 Personal history of transient ischemic attack (TIA), and cerebral infarction without residual deficits; Z87.891 Personal history of nicotine dependence; Z96.652 Presence of left artificial knee joint
CPT/HCPCS: 00810; 45382; 80053; 83036; 83690; 83735; 84100; 84439; 84443; 85025; 85027; 85610; 85730; 86850; 86900; 86901; 93005; 96361; 96374; 96376; 97163; 99285; C9113; G0378; G8987; G8988; J2370; J7030; J7120